=== PATIENT | female | born 1945 | race Caucasian/White ===

== ENCOUNTER → 2016-07-19 08:50 | Outpatient (CLI) | payer MEDICARE, BC ==
[2016-07-19 09:31] LABS: BILIRUBIN - DIRECT 0.1 mg/dL (0.00-0.30); BILIRUBIN - INDIRECT 0.37 mg/dL (0.00-1.00); BILIRUBIN - TOTAL 0.47 mg/dL (0.2-1.3); PROTEIN - SERUM 7.3 g/dL (6.4-8.2)
== END | disposition home or self-care (01) ==
LOC: D.CT 04-12 09:30 → D.LAB 04-12 10:30 → D.US 08:50
PROVIDERS: Internal Medicine Gastroenterology
DX: K76.0 Fatty (change of) liver, not elsewhere classified (principal)

== ENCOUNTER → 2016-08-30 09:03 | Outpatient (CLI) | payer MEDICARE, BC | END | disposition home or self-care (01) | LOC: D.MAMMO 08-23 15:00 | DX: E04.1 Nontoxic single thyroid nodule (principal) ==

== ENCOUNTER → 2016-09-20 12:30 | Outpatient (CLI) | payer MEDICARE, BC | END | disposition home or self-care (01) | LOC: D.US 12:30 | DX: E04.1 Nontoxic single thyroid nodule (principal) ==

== ENCOUNTER → 2016-10-03 08:28 | Outpatient (CLI) | payer MEDICARE, BC | END | disposition home or self-care (01) | LOC: D.MAMMO 08:28 | DX: R92.8 Other abnormal and inconclusive findings on diagnostic imaging of breast (principal) ==

== ENCOUNTER → 2017-01-08 08:21 | Outpatient (CLI) | payer MEDICARE, BC ==
[2017-01-08 09:22] LABS: ALBUMIN 3.6 g/dL (3.4-5.0); BILIRUBIN - DIRECT 0.06 mg/dL (0.00-0.30); BILIRUBIN - INDIRECT 0.24 mg/dL (0.00-1.00); BILIRUBIN - TOTAL 0.3 mg/dL (0.2-1.3); PROTEIN - SERUM 6.8 g/dL (6.4-8.2)
== END | disposition home or self-care (01) ==
LOC: D.US 08:21
PROVIDERS: Internal Medicine Gastroenterology
DX: K76.0 Fatty (change of) liver, not elsewhere classified (principal)

== ENCOUNTER → 2017-01-22 13:07 | Outpatient (CLI) | payer MEDICARE, BC | END | disposition home or self-care (01) | LOC: D.US 01-21 10:00 | DX: E04.1 Nontoxic single thyroid nodule (principal) ==

== ENCOUNTER → 2017-07-09 08:32 | Outpatient (CLI) | payer MEDICARE, BC ==
[2017-07-09 10:15] LABS: ALBUMIN 3.8 g/dL (3.4-5.0); BILIRUBIN - DIRECT 0.09 mg/dL (0.00-0.30); BILIRUBIN - INDIRECT 0.54 mg/dL (0.00-1.00); BILIRUBIN - TOTAL 0.63 mg/dL (0.2-1.3); PROTEIN - SERUM 7.4 g/dL (6.4-8.2)
== END | disposition home or self-care (01) ==
LOC: D.US 08:32
PROVIDERS: Internal Medicine Gastroenterology
DX: K76.0 Fatty (change of) liver, not elsewhere classified (principal)

== ENCOUNTER 2017-10-03 12:20 | Emergency (ER) | payer MEDICARE, BC ==
[~2017-10-03] VITALS: Ht 152.4 cm; Wt 62.7 kg
[2017-10-03 12:27] VITALS: Ht 152.4 cm; Wt 62.7 kg
[2017-10-03] MEDS ORDERED: SYNTHROID88 MCG PO (12:32)
[2017-10-03] MEDS ORDERED: CELEXA20 MG PO (12:32)
[2017-10-03] MEDS ORDERED: LEVSIN/ANASP0.125 MG PO (12:32)
[2017-10-03] MEDS ORDERED: ESTRACE 0.0142.5 GM VG (12:33)
[2017-10-03 13:03] LABS: APPEARANCE CLEAR (CLEAR); BACTERIA FEW /hpf (NONE SEEN); BILIRUBIN NEGATIVE (NEGATIVE); COLOR STRAW (YELLOW); EPITHELIAL CELLS RARE /hpf (0-5); GLUCOSE NEGATIVE (NEGATIVE); KETONE NEGATIVE (NEGATIVE); NITRITE NEGATIVE (NEGATIVE); PROTEIN NEGATIVE (NEGATIVE); SPECIFIC GRAVITY 1.005 (1.005-1.020); UROBILINOGEN NORMAL (NORMAL); WHITE CELLS - URINE OCC /hpf (0-5)
[2017-10-03 13:04] LABS: BASOPHILS 0.1 % (0-2); EOSINOPHILS 1.4 % (0-7); HEMATOCRIT 43.9 % (36.0-48.0); HEMOGLOBIN 15.7 g/dL (12-16); IMMATURE GRANULOCYTES 0.3 % (0-5); LYMPHOCYTES 28.7 % (15-50); MCH 31.9 pg (26.0-34.0); MCHC 35.8 g/dL (31.0-37.0); MCV 89.2 fL (80.0-100.0); MEAN PLATELET VOLUME 11.4 fL (7.4-10.4); MONOCYTES 6.6 % (2-11); NEUTROPHILS 62.9 % (40-80); PLATELET COUNT 200 10x3/uL (130-400); RBC 4.92 10x6/uL (4.00-5.40); RDW 13.2 % (11.5-14.5); WBC 8.7 10x3/uL (4.8-10.8)
[2017-10-03 13:16] LABS: INR 1.05 (0.85-1.17); PROTIME 13.3 SECONDS (11.6-15.0)
[2017-10-03 13:18] LABS: D-DIMER-QUANTITATIVE 0.55 ug/mLFEU (0.20-0.54)
[2017-10-03 13:30] LABS: ALBUMIN 4.3 g/dL (3.4-5.0); ALKALINE PHOSPHATASE 58 U/L (46-116); ALT (SGPT) 32 U/L (10-68); CALC OSMOLALITY 289 mosm/kg (275-300); CALCIUM 9.1 mg/dL (8.5-10.1); CARBON DIOXIDE 25.4 mmol/L (21.0-32.0); CHLORIDE - SERUM 108 mmol/L (98-107); CREATININE - SERUM 0.7 mg/dL (0.6-1.3); GLUCOSE 90 mg/dL (74-106); POTASSIUM - SERUM 3.6 mmol/L (3.5-5.1); SODIUM 147 mmol/L (136-145); UREA NITROGEN 8 mg/dL (7-18); eGFR NON AFRICAN AMERICAN 88 mL/min (90-120)
[2017-10-03 13:39] LABS: CKMB 2.4 U/L (0.0-3.6); CREATINE KINASE 136 UL (21-215); MAGNESIUM - SERUM 1.9 mg/dL (1.8-2.4); THYROID STIMULATING HORMONE 0.13 uIU/mL (0.36-3.74); TROPONIN-I < 0.017 ng/mL (0.000-0.060)
[2017-10-03] MEDS ORDERED: ASPIRIN EC81 M1 PO (15:08)
[2017-10-03] MEDS ORDERED: LOPRESSOR25 MG PO (15:08)
[2017-10-03 15:50] VITALS: BP 113/61
== END 2017-10-03 15:50 | disposition home or self-care (01) ==
LOC: D.ER 12:20
PROVIDERS: Family Medicine
DX: I48.91 Unspecified atrial fibrillation (principal)

== ENCOUNTER → 2018-01-09 09:07 | Outpatient (CLI) | payer MEDICARE, BC ==
[2017-10-03 12:27] VITALS: BMI 27.0
[~2018-01-09 09:07] MED LIST: ASPIRIN EC81 M1 PO; CELEXA20 MG PO; ESTRACE 0.0142.5 GM VG; LEVSIN/ANASP0.125 MG PO; LOPRESSOR25 MG PO; SYNTHROID88 MCG PO
[2018-01-09 10:25] LABS: ALBUMIN 3.2 g/dL (3.4-5.0); BILIRUBIN - DIRECT 0.08 mg/dL (0.00-0.30); BILIRUBIN - INDIRECT 0.26 mg/dL (0.00-1.00); BILIRUBIN - TOTAL 0.34 mg/dL (0.2-1.3)
== END | disposition home or self-care (01) ==
LOC: D.US 09:07
PROVIDERS: Internal Medicine Gastroenterology
DX: K76.0 Fatty (change of) liver, not elsewhere classified (principal); R19.7 Diarrhea, unspecified